=== PATIENT | male | born 1955 | race Hispanic/Latino ===

== ENCOUNTER 2021-09-10 07:51 | Day surgery (SDC) | payer OTHER ==
[2021-09-05 14:56] LABS: HEMATOCRIT 41.4 % (42-54); MEAN CORPUSCULAR HEMOGLOBIN 34.1 pg (27.0-33.0); MEAN CORPUSCULAR HGB CONC 34.1 g/dL (32.0-36.0); MEAN CORPUSCULAR VOLUME 100.2 fL (79-99); PLATELET COUNT (AUTO) 212 K/uL (130-400); RED BLOOD CELL COUNT(AUTO) 4.13 MIL/uL (4.50-6.20); RED CELL DISTRIBUTION WIDTH 12.1 % (11.0-15.5); WHITE BLOOD COUNT (AUTO) 6.4 K/uL (4.8-10.8)
[2021-09-05 15:03] LABS: POTASSIUM 4.7 mmol/L (3.5-5.1)
[2021-09-05 16:40] LABS: BAND NEUTROPHILS % (MANUAL) 4 % (0-2); EOSINOPHILS % (MANUAL) 1 % (1-6); LYMPHOCYTES % (MANUAL) 27 % (22-44); MAN.DIFF COMMENT-IMPRESSION MANUAL DIFFERENTIAL; MONOCYTES % (MANUAL) 6 % (2-9); REACTIVE LYMPHOCYTES 8 % (0-0); SEGMENTED NEUTROPHILS % 54 % (40-70)
[2021-09-09 10:36] VITALS: BP 142/77
[~2021-09-10] VITALS: Ht 172.7 cm; Wt 92.2 kg
[2021-09-10] VITALS (15 sets, daily range): BP systolic 100–131; BP diastolic 52–77
[~2021-09-10 07:51] MED LIST: FISH1CAP27 PO; MAGN400C PO; VITA1CAP PO; vitamin c PO; vitamin d PO
[2021-09-10] MEDS ORDERED: LACTATED RINGERS 1000ML 1,000 ML IV ONE (08:41)
[2021-09-10] MEDS ORDERED: PROPOFOL 10 MG/ML 20ML VIAL IV ONE ×3 (09:57→10:52)
[2021-09-10] MEDS ORDERED: MIDAZOLAM HCL 1 MG/ML 2ML VIAL ONE (09:57)
[2021-09-10] MEDS ORDERED: SUCCINYLCHOLINE 200MG/10ML SYR ONE (09:57)
[2021-09-10] MEDS ORDERED: ROCURONIUM 10MG/1ML SYR 10 MG/ML ML ONE (09:57)
[2021-09-10] MEDS ORDERED: FENTANYL CITRATE PF 50 MCG/1 ML 2ML VIAL ONE ×3 (09:58→11:57)
[2021-09-10] MEDS ORDERED: NEOMY SULF/BACITRAC ZN/POLY OINT 30GM TUBE TP ONE (10:04)
[2021-09-10] MEDS ORDERED: LIDOCAINE 1%-EPI 1:100,000 20 ML VIAL IJ ONE (10:04)
[2021-09-10] MEDS ORDERED: GLYCOPYRROLATE 1 MG/5 ML SYRINGE ONE (10:40)
[2021-09-10] MEDS ORDERED: ONDANSETRON 4MG INJ ONE (10:41)
[2021-09-10] MEDS ORDERED: NEOSTIGMINE 5MG/5ML SYR IV ONE (11:46)
== END 2021-09-10 14:10 | disposition home or self-care (01) ==
LOC: DAH 07:51
PROVIDERS: ATTEND Otolaryngology Plastic Surgery within the Head & Neck
DX: C08.0 Malignant neoplasm of submandibular gland (principal); R59.1 Generalized enlarged lymph nodes; F17.200 Nicotine dependence, unspecified, uncomplicated
CPT/HCPCS: 80048; 85025; 36415; 87635; 42440; 38510; 88184; 88185; 88307; 88342; 88360; 88341; C9803; A4663; C1729; J7120; J3010 ×3; J3490 ×2; J0330; J2710; J2250; J2704 ×3; J2405; A4649; A4215; A4223; A4222; A4221